=== PATIENT | male | born 1975 | race Caucasian/White ===

== ENCOUNTER 2020-08-31 17:31 | Inpatient (IN) | payer OTHER, SELFPAY ==
[2020-08-31] VITALS (7 sets, daily range): BP systolic 132–156; BP diastolic 87–116; PULSE 59–75; RESP 16–20; TEMP 36.3–36.9; O2SAT 96–100; BMI 26.5
--- NOTE | ~2020-08-31 | XR_ITS ---
EXAMINATION: XR chest 2V DATE: 08/31/2020 18:45 INDICATION: Left-sided chest pressure TECHNIQUE: PA and lateral views of the chest were obtained. COMPARISON: None FINDINGS: The lungs are clear with no focal airspace opacities, pulmonary edema, pleural effusion or pneumothor ax. The cardiomediastinal silhouette is normal. Minimal anterior wedging of a couple mid thoracic mona tebral bodies with mild to moderate midthoracic spondylosis. IMPRESSION: 1. No acute cardiopulmonary disease. Reviewed, dictated and finalized at location [facility] (CAD)
--- NOTE | 2020-08-31 18:00 | ECG_ITS ---
Measurements Intervals [place] Rate: 59 P: 66 IN: 159 QRS: -21 QRSD: 109 T: 46 QT: 399 QTc: 395 Interpretive Statements SINUS BRADYCARDIA CANNOT RULE OUT SEPTAL INFARCT, AGE INDETERMINATE SUBTLE ST ELEVATION IN HIGH LATERAL LEADS- CONSIDER ACUTE INJURY BASELINE WANDER- V2 ABNORMAL ECG Electronically Signed On 08-31-2020 20:24:04 SALES ADMINISTRATOR by Tommie Hoffman D.O.
[2020-08-31 18:23] LABS: Basophils Percent Auto 0.4 % (0.2-1.2); Eosinophils Absolute Auto 0.3 K/mm3 (0-0.3); Eosinophils Percent Auto 2.5 % (0-4.4); Hematocrit 51.2 % (42.0-52.0); Hemoglobin 17.9 g/dL (14.0-18.0); Immature Granulocyte Absolute 0.03 K/mm3 (0.00-0.031); Immature Granulocyte Percent A 0.3 % (0-0.5); Lymphocytes Absolute Auto 2.72 K/mm3 (0.9-3.2); Lymphocytes Percent Auto 26.9 % (18.3-44.2); Mean Corpuscular Volume 94.3 fl (80-100); Mean Platelet Volume 10.4 fl (7.4-10.4); Monocytes Absolute Auto 0.9 K/mm3 (0.1-0.6); Monocytes Percent Auto 9.1 % (2.6-8.5); Neutrophils Absolute Auto 6.2 K/mm3 (1.3-6.7); Neutrophils Percent Auto 60.8 % (45.5-73.1); Platelet Count Result 188 k/mm3 (150-375); Red Blood Count 5.43 M/mm3 (4.6-6.20); White Blood Count 10.1 K/mm3 (4.5-10.0)
[2020-08-31] MEDS: ASPIRIN 81 MG CHEWABLE TABLET 324 MG PO (18:29)
[2020-08-31 18:34] LABS: Anion Gap 9 mmol/L (8-16); Blood Urea Nitrogen 20 mg/dL (9-20); Calcium 9.3 mg/dL (8.4-10.2); Carbon Dioxide 27 mmol/L (22-30); Chloride 105 mmol/L (98-107); Estimated CRCL calculation 76 ml/min; Estimated Glomerular Filt Rate > 60; Glucose 107 mg/dL (75-110); Potassium 4.1 mmol/L (3.4-5.0); Sodium 141 mmol/L (137-145)
[2020-08-31 18:36] LABS: INR 0.9; Prothrombin Time 13.1 Seconds (11.1-14.7)
[2020-08-31 18:37] LABS: Partial Thromboplastin Time 28.7 SECONDS (22.3-36.8)
--- NOTE | 2020-08-31 18:50 | ECG_ITS ---
Measurements Intervals [place] Rate: 57 P: 62 SC: 159 QRS: -28 QRSD: 90 T: 46 QT: 386 QTc: 378 Interpretive Statements SINUS BRADYCARDIA CANNOT RULE OUT SEPTAL INFARCT, AGE INDETERMINATE SUBTLE ST ELEVATION IN HIGH LATERAL LEADS- CONSIDER ACUTE INJURY ABNORMAL ECG Electronically Signed On 08-31-2020 20:25:10 FITNESS MANAGEMENT DIRECTOR by Tommie Hoffman D.O.
--- NOTE | 2020-08-31 18:53 | ED.CHESTPAIN ---
HPI - Chest Pain General Chief Complaint: Chest Pain <NATALY Delgado Last Filed: 08/31/20 20:04> Stated Complaint: CHEST PRESSURE SINCE YESTERDAY <NATALY Delgado Last Filed: 08/31/20 20:04> Time Seen by Provider: 08/31/20 18:05 <NATALY Delgado Last Filed: 08/31/20 20:04> Source: patient <NATALY Delgado Last Filed: 08/31/20 20:04> Mode of arrival: ambulatory <NATALY Delgado Last Filed: 08/31/20 20:04> Limitations: no limitations <NATALY Delgado Last Filed: 08/31/20 20:04> History of Present Illness HPI narrative: This is a 45 year old male that presents to the ER for substernal chest tightness since yesterday. Reports he was at work, not doing anything strenuous. Reports he started to develop some substernal chest discomfort. Reports this has been mostly constant since onset. Reports some mild associated shortness of breath. Thought that he may be was getting a chest cold. Denies fever, congestion, or cough. <NATALY Delgado Last Filed: 08/31/20 20:04> Related Data Home Medications: Home Medications Medication Instructions Recorded Confirmed Aspir-81 81 mg PO DAILY 08/31/20 <NATALY Delgado Last Filed: 08/31/20 20:04> Allergies/Adverse Reactions: Allergies Allergy/AdvReac Type Severity Reaction Status Date / Time BEE STINGS Allergy Unknown Uncoded 09/29/16 13:02 <NATALY Delgado Last Filed: 08/31/20 20:04> Review of Systems Review of Systems: Narrative: CONSTITUTIONAL: Denies fever ENT: Denies rhinorrhea, congestion CARDIOVASCULAR: Reports chest pain. Denies edema. RESPIRATORY: Reports dyspnea. Denies cough <NATALY Delgado Last Filed: 08/31/20 20:04> All systems reviewed & are unremarkable except as noted in HPI and below <NATALY Delgado Last Filed: 08/31/20 20:04> [facility] Past Medical History Medical History: Medical History (Updated 08/31/20 @ 20:02 by Nina Mcgarry PA-C) History of hemochromatosis <Nina Mcgarry PA-C - Last Filed: 08/31/20 20:04> Surgical History Surgical History: Surgical History (Updated 08/31/20 @ 18:56 by Nina Mcgarry PA-C) History of inguinal hernia repair <Nina Mcgarry PA-C - Last Filed: 08/31/20 20:04> Family History Family History: Family History (Updated 08/31/20 @ 21:50 by Vikki Hope RN) Father Hypertension Father Myocardial infarction Mother Diabetes mellitus Mother Cancer <Nina Mcgarry PA-C - Last Filed: 08/31/20 20:04> Social History Social History: Social History (Updated 08/31/20 @ 18:55 by Nina Mcgarry PA-C) Smoking packs per day: 1 Smoking cigarettes per day: 20.0 Years smoked: 30 Smoking pack-years: 30.00 Smoking status: Current every day smoker Alcohol intake: current Drinks per week: 2 Substance use: current Substance use type: marijuana Gender identity (if verbalized by the patient): Male Spiritual care concerns: No <Nina Mcgarry PA-C - Last Filed: 08/31/20 20:04> Exam Narrative: Exam Narrative: GENERAL: Well-appearing, well-nourished, and in no acute distress. HEAD: Normocephalic, atraumatic. EYES: EOMI. ENT: Nares clear, no rhinorrhea or epistaxis. Mucous membranes moist. Oropharynx without tonsillar hypertrophy exudate or other lesions. Bilateral TMs pearly rao non-bulging NECK: Supple. No adenopathy or masses. No carotid bruits or JVD CHEST: Clear to auscultation. No respiratory distress. No wheezes rales or rhonchi HEART: Regular rate and rhythm. No murmur heard. Normal peripheral pulses. EXTREMITIES: Normal range of motion. No edema. SKIN: Warm, dry, no rash. NEURO: No focal deficits. Alert and oriented x3. PSYCH: Normal mood and affect <Nina Mcgarry PA-C - Last Filed: 08/31/20 20:04> Course TWINE REELING MACHINE OPERATOR/PA Physician Supervision For this patient encounter, I reviewed the TWINE REELING MACHINE OPERATOR or PA documentati
[2020-08-31 19:11] LABS: D Dimer 0.27 ug/mL (<0.48)
[2020-08-31] MEDS: ENOXAPARIN 100 MG/ML SYRINGE 85 MG SUB-Q (19:32)
[2020-08-31] MEDS: ATORVASTATIN 40 MG TABLET PO (20:00)
[2020-08-31 20:30] LABS: Cholesterol 180 mg/dL (0-200); HDL Direct 39 mg/dL; Triglycerides 151 mg/dL (<150)
[2020-08-31 20:40] LABS: LDL Cholesterol Direct 123 mg/dL
[2020-08-31] MEDS: NITROGLYCERIN SL 0.4 MG TABLET SUBLINGUAL (21:39)
--- NOTE | 2020-08-31 21:54 | ADMGEN ---
This patient, Joel Ayoub, was admitted to IMU Room 207-01. Patient/family oriented to hospital policies and general routines including ID bracelet, bed and alarms, visiting hours, pain management, procedures, bathroom and other care routines, personal items, smoking policy, room service/diet, and visiting hours. Information on how to activate the Rapid Response Team has been discussed. Patient/Family are encouraged to report perceived risks to care and to ask questions if they do not understand what they are told or what they should do.
[2020-09-01] VITALS (21 sets, daily range): BP systolic 113–133; BP diastolic 67–88; PULSE 56–96; RESP 12–20; TEMP 36.2–37.3; O2SAT 96–100
[2020-09-01] MEDS: NITROGLYCERIN OINTMENT 1 INCH DOSE TRANSDERM ×2 (00:16→06:41)
[2020-09-01] MEDS: ENOXAPARIN 100 MG/ML SYRINGE 85 MG SUB-Q (06:41)
--- NOTE | 2020-09-01 08:16 | PM.IMHP ---
H&P: HPI History of Present Illness Date/Time: Date of service 09/01/20 08:16 Chief complaint: NSTEMI Narrative: Joel Ayoub is a 45 year old male with past medical history of hemochromatosis, tobacco abuse, and strong family history for CAD(mom had CABG in her 40s) who presents to the hospital with central chest pressure for the last couple days with no aggravating or relieving factors. It was constant. He thought that he is developing chest cold and waited. Then his told him to come to the emergency room. Denies any lymphedema, fever, chills, nausea, vomiting, shortness of breath, sick contacts. Troponins 5.6, 6, 5.5, chest x-ray reviewed myself looks unremarkable, EKG reviewed myself shows Q-waves leads V1 to V3 with subtle ST elevation in leads 1 and aVL. Review of Systems Review of Systems: All systems reviewed & are unremarkable except as noted in HPI and below Constitutional: Constitutional: Denies chills, Denies fatigue, Denies fever(s), Denies headache(s) and Denies snoring Eyes: Eyes: Denies eye discharge and Denies loss of vision ENT: Denies dizziness, Denies headache(s), Denies nasal discharge and Denies sore throat Cardiovascular: Cardiovascular: Reports as per HPI, Reports chest pain, Denies syncope, Denies rapid heart rate, Denies leg edema, Denies dyspnea, Denies dyspnea on exertion, Denies orthopnea and Denies paroxysmal nocturnal dyspnea Respiratory: Respiratory: Denies chest congestion, Denies cough, Denies dyspnea, Denies dyspnea on exertion, Denies snoring and Denies wheezing Gastrointestinal: Gastrointestinal: Denies abdominal pain, Denies diarrhea, Denies nausea and Denies vomiting Genitourinary: Genitourinary: Denies hematuria, Denies dysuria, Denies flank pain and Denies urinary frequency Musculoskeletal: Musculoskeletal: Denies myalgias, Denies arthralgias and Denies joint swelling Neurologic: Denies Abnormal speech present, Denies dizziness, Denies syncope, Denies headache(s), Denies focal weakness and Denies loss of vision Psychiatric: Psychiatric: Denies anxiety and Denies depression Endocrine: Endocrine: Denies cold intolerance, Denies fatigue and Denies heat intolerance Hematologic/Lymphatic: Hematologic/Lymphatic: Denies easy bleeding and Denies easy bruising Allergic/Immunologic: Allergic/Immunologic: Denies urticaria and Denies wheezing PMFSH Past Medical History Medical History History of hemochromatosis Surgical History Surgical History History of inguinal hernia repair Family History Family History Father Hypertension Father Myocardial infarction Mother Diabetes mellitus Mother Cancer Social History Social History Smoking packs per day: 1 Smoking cigarettes per day: 20.0 Years smoked: 30 Smoking pack-years: 30.00 Smoking status: Current every day smoker Alcohol intake: current Drinks per week: 2 Substance use: current Substance use type: marijuana Gender identity (if verbalized by the patient): Male Spiritual care concerns: No Meds Home Medications and Allergies Home Medications Medication Instructions Recorded Confirmed Type Aspir-81 81 mg PO DAILY 08/31/20 09/01/20 History Allergies Allergy/AdvReac Type Severity Reaction Status Date / Time BEE STINGS Allergy Unknown Uncoded 09/29/16 13:02 Vital Signs Vital Signs - 24 hr 08/31/20 17:54 08/31/20 18:09 08/31/20 20:00 Temperature 36.3 C L Pulse Rate 59 L 75 73 Respiratory Rate 16 18 20 Blood Pressure 146/87 H 132/116 H 154/112 H Pulse Oximetry 99 99 96 08/31/20 20:44 08/31/20 21:49 08/31/20 22:00 Temperature 36.6 C Pulse Rate 60 73 74 Respiratory Rate 18 20 Blood Pressure 150/103 H 150/90 H Pulse Oximetry 99 99 08/31/20 2
--- NOTE | 2020-09-01 09:51 | WPDHPUPDATE1 ---
History and Physical Update Update Date/Time: 09/01/20 09:51 History and Physical has been reviewed, including an updated exam of the patient. There are NO changes in the patient's condition. Risks, benefits, and alternatives have been discussed and questions answered. Patient agrees to proceed with procedure.
--- NOTE | 2020-09-01 09:52 | P.PCNCC_ITS ---
Cardiac Cath Procedure Note Date of procedure:: 09/01/20 Performing physician:: Tobias Noble MD Date of service 09/01/2020 Indication:: NSTEMI Brief clinical history:: 45-year-old patient with past history of kathreyn chromatosis, chronic tobacco use and strong family history for CAD who presents to the hospital with 2 days chest pressure. Troponins 5.6. EKG shows subtle ST elevation in leads 1 and aVL and Q-waves in leads V1 and V2. Given his history and his troponin elevation who was brought into packing house laborer to define coronary anatomy. Procedure Procedure performed:: 1-Moderate sedation that started at 9:24 a.m. and ended at 9:44 a.m. using 4mg of Versed and 75mcg fentanyl. The registered nurse was Dinorah Abdalla 2-Selective left and right coronary angiogram. 3-Left heart catheterization with measurement of LVEDP and measurement of gradient across aortic valve. 3- LV angiogram. 4-Right common femoral arterial angiogram. 5-Deployment of 6 [place] Angio-Seal. Sedation/Medication given:: Moderate sedation. Access site:: Right common femoral artery. Estimated blood loss:: 10cc Procedure note:: After informed consent patient was brought in to packing house laborer with the was draped and prepped in usual manner. Moderate sedation was given and the right groin was infiltrated using 1% lidocaine. Five Kenyan sheath was obtained using micropuncture needle and the modified Seldinger technique. Selective left coronary angiogram was done using JL4 catheter with the tip of the catheter placed in the left main coronary artery. Selective right coronary angiogram was done using JR4 catheter with the tip of the catheter placed to the right coronary artery. After that 5 Kenyan pigtail catheter was advanced across the aortic valve into the left ventricle with measurement of LVEDP and measurement of gradient across aortic valve. LV angiogram was done. Right common femoral arterial angiogram was done. Findings:: 1- left coronary artery is a large artery that divides into large LAD, large circumflex artery. Left main is free of disease. 2- left anterior descending artery is a large artery that runs and wraps around the apex. In the distal segment shows about 40% stenosis. proximally there is a diagonal branch that is small in size and totally occluded abruptly likely the culprit for this non ST-elevation. there is a 2nd diagonal branch that is with a small and has ostial 70%. 3- leftcircumflex artery is a large artery Has minimal irregularities except at the junction of the mid to the distal segment there is a focus stenosis about 50%. 4- right coronary artery is large artery and dominant and minimal irregularities 5- LVEDP was 10 no gradient across aortic valve. 6- LV angiogram shows estimated ejection fraction is 65% and no significant wall motion abnormalities 6- opening arterial pressure was 86/70and closing pressure was 118/65 7- right femoral artery angiogram shows no significant disease in the right common femoral artery. Conclusion:: totally occluded small diagonal branch likely the culprit for the NSTEMI. at the junction of the mid to distal LAD 40% and 50% at the junction of the mid to distal left circumflex artery. Assessment and Plan Additional Plan 1- observe this patient overnight. 2- tobacco cessation. 3- high-intensity statin. 4- encourage diet changes. consult dietitian. 5- regular exercising. 6- recommend aspirin daily for life. recommend Plavix to be added for 1 year.
--- NOTE | 2020-09-01 09:52 | WPDMODSED ---
Moderate Sedation Note-Pt Data Patient Data Allergies Allergy/AdvReac Type Severity Reaction Status Date / Time BEE STINGS Allergy Unknown Uncoded 09/29/16 13:02 Home Medications Medication Instructions Recorded Confirmed Type Aspir-81 81 mg PO DAILY 08/31/20 09/01/20 History Current Medications: Active Medications Atorvastatin Calcium (Atorvastatin 40 Mg Tablet) 40 mg PO DAILY [facility] Nitroglycerin (Nitroglycerin Ointment 1 Inch Dose) 1 inch TRANSDERM Q6HR [facility] Last Admin: 09/01/20 06:41 Dose: 1 inch Documented by: Sedation/Anesthesia: No previous sedation/anesthesia problems (including family history). [facility] Past Medical History Medical History (Updated 09/01/20 @ 08:30 by Tobias Noble MD) History of hemochromatosis Tobacco abuse Surgical History Surgical History History of inguinal hernia repair Family History Family History Father Hypertension Father Myocardial infarction Mother Diabetes mellitus Mother Cancer Social History Social History Smoking packs per day: 1 Smoking cigarettes per day: 20.0 Years smoked: 30 Smoking pack-years: 30.00 Smoking status: Current every day smoker Alcohol intake: current Drinks per week: 2 Substance use: current Substance use type: marijuana Gender identity (if verbalized by the patient): Male Spiritual care concerns: No Mod Sed Physical Exam Physical Exam Pre Procedural Exam: Normal: Appearance, Eyes, Ears, Nose, Neck, Throat, Airway, Lungs, Heart Size, Heart Rate, Heart Rhythm, Neuro Exam, Abdomen, Liver, Kidneys, Spleen, Breasts, Genitalia, Extremities and Skin Hours since solid foods: 8 Hours since liquid intake: 8 Internal Medicine - PN: Obj Da Vital Signs Vital Signs: Vital Signs - 24 hr 08/31/20 17:54 08/31/20 18:09 08/31/20 20:00 Temperature 36.3 C L Pulse Rate 59 L 75 73 Respiratory Rate 16 18 20 Blood Pressure 146/87 H 132/116 H 154/112 H Pulse Oximetry 99 99 96 08/31/20 20:44 08/31/20 21:49 08/31/20 22:00 Temperature 36.6 C Pulse Rate 60 73 74 Respiratory Rate 18 20 Blood Pressure 150/103 H 150/90 H Pulse Oximetry 99 99 08/31/20 23:46 09/01/20 00:00 09/01/20 02:00 Temperature 36.9 C Pulse Rate 69 70 63 Respiratory Rate 18 Blood Pressure 156/91 H Pulse Oximetry 100 09/01/20 03:55 09/01/20 04:00 09/01/20 06:00 Temperature 37.3 C Pulse Rate 85 71 72 Respiratory Rate 18 Blood Pressure 130/80 Pulse Oximetry 99 09/01/20 08:00 Temperature 36.6 C Pulse Rate 84 Respiratory Rate 12 Blood Pressure 115/72 Pulse Oximetry 96 Intake/Output Intake/Output: Intake & Output 08/29/20 08/30/20 08/31/20 09/01/20 23:59 23:59 23:59 23:59 Intake Total 250 Output Total 450 Balance -200 Meds/Results Medications: Active Medications Generic Name Dose Route Start Last Admin Trade Name Freq PRN Reason Stop Dose Admin Atorvastatin Calcium 40 mg 09/01/20 09:00 Atorvastatin 40 Mg Tablet PO DAILY [facility] Nitroglycerin 1 inch 09/01/20 00:00 09/01/20 06:41 Nitroglycerin Ointment 1 Inch Dose TRANSDERM 1 inch Q6HR [facility] Administration Radiology Results: ITS Impressions Chest X-Ray 08/31/20 19:14 IMPRESSION: 1. No acute cardiopulmonary disease. Labs CBC & Chem 7: 08/31/20 18:14 08/31/20 18:14 Labs: Laboratory Results - last 24 hr 08/31/20 08/31/20 08/31/20 18:13 18:14 18:14 WBC 10.1 H RBC 5.43 Hgb 17.9 Hct 51.2 MCV 94.3 MCH 33.0 MCHC 35.0 RDW 12.0 Plt Count 188 MPV 10.4 Immature Gran % (Auto) 0.3 Neut % (Auto) 60.8 Lymph % (Auto) 26.9 Anderson % (Auto) 9.1 H Eos % (Auto) 2.5 Baso % (Auto) 0.4 Lymph # (Auto) 2.72 Anderson # (Auto) 0.9 H Eos # (Auto) 0.3 Baso # (Auto)
[2020-09-01] MEDS: IBUPROFEN 400 MG TABLET 800 MG PO (11:28)
[2020-09-01] MEDS: ATORVASTATIN 40 MG TABLET PO (11:29)
[2020-09-01] MEDS: ASPIRIN 81 MG CHEWABLE TABLET PO (11:29)
[2020-09-01] MEDS: CLOPIDOGREL BISULFATE 75 MG TABLET PO (11:31)
[2020-09-02] VITALS (8 sets, daily range): BP systolic 118–138; BP diastolic 80–91; PULSE 60–81; RESP 16; TEMP 36–36.6; O2SAT 97–98
[2020-09-02] MEDS: CLOPIDOGREL BISULFATE 75 MG TABLET PO (09:03)
[2020-09-02] MEDS: ATORVASTATIN 40 MG TABLET PO (09:03)
[2020-09-02] MEDS: ASPIRIN 81 MG CHEWABLE TABLET PO (09:04)
--- NOTE | 2020-09-02 11:52 | PM.DS ---
DS: Admitting Diagnosis Admitting Diagnosis Admitting Diagnosis: NSTEMI DS: Discharge Diagnosis Discharge Diagnosis (1) Non-ST elevation [place] (NSTEMI): Code(s): I21.4 - Non-ST elevation (NSTEMI) myocardial infarction Status: Acute Assessment and Plan: Cardiac catheterization 09/01/2020 revealed a totally occluded small diagonal branch likely the culprit for the non ST-elevation myocardial infarction. At the junction of mid to distal LAD there is a 40% and a 50% at the junction of the mid to distal left circumflex artery. Continue aspirin, clopidogrel, atorvastatin Smoking cessation DS: Summary Hospital Course Reason for hospitalization: Chest pain Hospital Course: 45-year-old male presented to the emergency room on 08/31/2020 with chest pain. The discomfort had been constant for the last few days. He thought he was developing a chest cold and waited. His convinced him to come to the emergency room for evaluation. Initial troponin 5.6 which went to 6.0. EKG showed Q-waves in lead V1 to V [address] elevation in lead 1 and aVL. He was taken to the cardiac catheterization lab by Dr Noble on 09/01/2020 a totally occluded small diagonal branch likely the culprit for the non ST-elevation myocardial infarction. At the junction of the mid to distal LAD there was a 40% stenosis and 50% of the junction of the mid to distal left circumflex. He was started on clopidogrel and atorvastatin. His aspirin was continued. He was monitored overnight. He had no arrhythmias. Vital signs were stable. He noted some residual chest discomfort. His right groin site was without swelling or bleeding. No ecchymosis. No femoral bruit. Distal pulses intact. He did complain of some right testicular discomfort that he noted today but not yesterday when he was ambulating. He does have a history of kidney stones. He was discharged home in stable condition. Time spent discussing smoking cessation with patient: 3 to 10 minutes Status at Discharge Functional status at discharge: independent ambulation Overall status at discharge: patient is back to baseline Time Spent with Patient Time attestation: Total time spent providing and/or coordinating discharge services: 20 minutes in the room to do exam, discuss medications, tobacco cessation, diet, exercise, activity limitations, return to work and follow-up. 10 minutes to do discharge order. 10 minutes to do discharge summary. Total time for discharge: 40 minutes Time spent: Greater than 30 minutes Exam Const: General: cooperative, healthy appearing, comfortable, no acute distress and well developed Nutritional Appearance: well nourished Orientation/consciousness: patient oriented x3 HENMT: Head: normal to inspection, normocephalic and atraumatic Ears: hearing grossly normal bilaterally and external ears normal General nose exam: Normal external nose present and Normal nares present Face and sinus: normal facial exam and no erythema Mouth: Yes moist mucous membranes Eyes: General: appearance normal, both eyes and all related structures Eyelids: eyelids normal Sclera: sclerae normal Neck: Neck: normal visual inspection and full ROM Resp: Effort & Inspection: normal respiratory effort and able to speak in complete sentences Auscultation: clear to auscultation bilaterally Cardio: Jugular venous distension: no JVD Rate: regular rate Rhythm: regular rhythm Heart sounds: S1 normal heart sound present, S2 normal heart sound present, no click, no gallops, no murmurs and no rubs Peripheral pulses: Peripheral pulses 2+ throughout GI: Inspection: normal to inspection and non-distended GI Palp: Yes Soft to palpation Auscultation: normal bowel sounds Skin: General skin exam: normal color, no erythema and no pallor Lesions: no lesions Rashes: no rashes Neuro: General: patient oriented x3 and moves al
== END 2020-09-02 12:09 | disposition home or self-care (01) | DRG 282 ==
LOC: ANHED 20:02 → ANHIMU 09-01 03:51
PROVIDERS: Emergency Medicine; Physician Assistant; Specialist; Admitting Provider Internal Medicine Cardiovascular Disease; Emergency Provider Emergency Medicine; Visit Provider Nurse Practitioner Adult Health
PROC: 4A023N7 Measurement of Cardiac Sampling and Pressure, Left Heart, Percutaneous Approach (ICD-10-PCS; CPT 93452; principal; 2020-09-01 08:30)
DX: I21.4 Non-ST elevation (NSTEMI) myocardial infarction (principal); I25.10 Atherosclerotic heart disease of native coronary artery without angina pectoris; E83.119 Hemochromatosis, unspecified; F17.210 Nicotine dependence, cigarettes, uncomplicated; Z82.49 Family history of ischemic heart disease and other diseases of the circulatory system; Z79.82 Long term (current) use of aspirin; Z87.442 Personal history of urinary calculi
CPT/HCPCS: 36415; 71046; 80048; 80061; 84484; 85025; 85380; 85610; 85730; 93005; 93458; 96372; 99291; A9270; C1760; C1887; C1894; G0269; J0583; J1644; J1650; J2250; J3010; J7040